=== PATIENT | male | born 1950 | race Caucasian/White ===

== ENCOUNTER 2018-02-07 21:57 | Observation (INO) ==
[2018-02-07] MEDS ORDERED: Aspirin 81 MG TAB.CHEW PO STA (22:31)
[2018-02-07] MEDS ORDERED: Nitroglycerin 0.4 MG TAB.SUBL SL PRN (22:31)
--- NOTE | 2018-02-07 22:34 | Emergency Department Note ---
Disposition Clinical Impression: Chest pain Qualifiers: Chest pain type: unspecified Qualified Code(s): R07.9 - Chest pain, unspecified Disposition: Admitted As Inpatient Condition: Good Chest Pain HPI - General Chief Complaint: ED Chest Pain Stated Complaint: CP Time Seen by Provider: 02/07/18 22:29 Source: patient Limitations: no limitations Vital Signs Reviewed: Yes Nursing Notes Reviewed: Yes - History of Present Illness HPI Narrative: Patient assessment chest pain since yesterday. Does not describe his symptoms very well. Seems to have had tightness constantly for about 24 hours with intermittent episodes of pain. The episodes he describes his pain include a burning sensation on the left side of his chest and a heavy sensation on the right side of his chest. No radiation. No associated nausea or diaphoresis. He does have associated shortness of breath. He says this does not feel like when he had his bypass surgery, but does feel similar ways had stents in the past. He had a negative recent stress test prior to a colonoscopy. He cannot identify any alleviating or exacerbating factors, specifically, no change with position, with exertion or with rest, or with deep breathing or coughing. He is not having fever or cough. No hemoptysis. No abdominal pain, vomiting or diarrhea. He currently has the tightness and just a little bit of a burning sensation on the left side of his chest. He has also had some associated dizziness without syncope or near-syncope, does not currently feel dizzy. Severity scale (1-10): 3 - Related Data Home Medications Medication Instructions Recorded Confirmed Albuterol Sulfate [Ventolin Hfa] 2 puff IH Q4H PRN 10/15/17 02/07/18 Aspirin [Lo-Dose Aspirin EC] 81 mg PO DAILY 10/15/17 02/07/18 Atorvastatin Calcium [Lipitor] 80 mg PO HS 10/15/17 02/07/18 BuPROPion SR (12 HR) [Wellbutrin 150 mg PO BID 10/15/17 02/07/18 SR] Carvedilol [Coreg] 25 mg PO BID 10/15/17 02/07/18 Clopidogrel [Plavix] 75 mg PO DAILY 10/15/17 02/07/18 Dofetilide [Tikosyn] 500 mcg PO BID 10/15/17 02/07/18 Evolocumab [Repatha Sureclick] 140 mg SQ Q2W 10/15/17 02/07/18 Furosemide [Lasix] 80 mg PO DAILY 10/15/17 02/07/18 Insulin Glargine,Hum.rec.anlog 30 unit SQ BID 10/15/17 02/07/18 [Lantus Solostar] Lisinopril [Zestril] 10 mg PO DAILY 10/15/17 02/07/18 [place]-3 Acid Ethyl Esters [Lovaza] 2 gm PO BID 10/15/17 02/07/18 Spironolactone [Aldactone] 25 mg PO DAILY 10/15/17 02/07/18 Glimepiride [Amaryl] 4 mg PO DAILY 10/30/17 02/07/18 Fluocinonide 1 appl TP DAILY PRN 02/07/18 02/07/18 Ipratropium/Albuterol Neb [Duoneb] 3 ml IH Q6HR 02/07/18 02/07/18 Ketoconazole Shampoo [Nizoral 1 appl TP 3XW 02/07/18 02/07/18 Shampoo] Minocycline [Minocin] 50 mg PO QAM 02/07/18 02/07/18 Multivitamin [One Daily 1 each PO DAILY 02/07/18 02/07/18 Multivitamin] Nicotine Patch [Nicoderm] 21 mg TD DAILY PRN 02/07/18 02/07/18 Tiotropium Br/Olodaterol HCl 2 puff IH DAILY 02/07/18 02/07/18 [Stiolto Respimat Inhal [place]] Varenicline Tartrate [Chantix] 1 mg PO BID 02/07/18 02/07/18 Acetaminophen [Tylenol] 1,000 mg PO Q6HR PRN 02/08/18 02/08/18 Allergies Allergy/AdvReac Type Severity Reaction Status Date / Time No Known Allergies Allergy Verified 11/26/17 03:09 All systems ED: reviewed and negative except as stated. 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 Gen.: Well-developed, well-nourished patient lying in bed who appears nontoxic. Head: Atraumatic, normocephalic. Eyes: Sclerae anicteric. ENT: Mucous membranes moist. Neck: No JVD. Heart: Regular rate and rhythm without appreciable murmur. Lungs: Normal respiratory pattern without respiratory distress, lungs clear to auscultation bilaterally. Abdomen: Soft, nontender, nondistended, no guarding or peritoneal signs. Skin: Warm and dry without rash. Neurologic: Awake, alert with normal speech and mental status. Cranial nerves grossly intact. No focal deficits or lateralizing signs. Psychiatric: Normal mood and affect. Musculoskeletal: Trace peripheral edema. No signs of trauma or DVT. - General Limitations: no limitations General appearance: alert, in no apparent distress Course Vital Signs Temperature 98.0 F 02/07/18 22:15 Pulse Rate 84 02/07/18 22:15 Respiratory Rate 18 02/07/18 22:15 Blood Pressure 132/73 02/07/18 22:15 O2 Sat by Pulse Oximetry 96 02/07/18 22:15 Temperature 98.3 F 02/11/18 11:22 Pulse Rate 68 02/11/18 11:22 Respiratory Rate 18 02/11/18 11:36 Blood Pressure 120/76 02/11/18 11:22 O2 Sat by Pulse Oximetry 94 02/11/18 11:36 Oxygen Delivery Oxygen Delivery Room Air Chest Pain - MDM Narrative Medical decision making narrative: Concerning presentation for possibility of ischemia. Last pt seen before shift change. Work up initiated, treatment ordered, pt checked out, will require admission once work up complete and pain is treated. - Lab Data Result diagrams: 02/10/18 07:57 02/10/18 07:57 Lab Results 02/07/18 02/07/18 Range/Units 23:08 23:08 Hgb 12.5 L (12.9-16.9) g/dL Sodium 137 (136-145) mEq/L Potassium 3.7 (3.5-5.1) mEq/L Chloride 104 (98-107) mEq/L Carbon Dioxide 25 (23-29) mEq/L BUN 16 (8-23) mg/dL Creatinine 0.84 (0.70-1.30) mg/dL Est GFR ( Amer) > 60 (> 60) Est GFR (Non-Af Amer) > 60 (> 60) BUN/Creatinine Ratio 19 (6-26) Glucose 173 H (70-105) mg/dL Calculated Osmolality 289 (280-300) Calcium 9.7 (8.6-10.3) mg/dL Troponin I < 0.03 (< 0.04) ng/mL - EKG Data EKG attestation: Yes I reviewed and interpreted this EKG. EKG shows normal: sinus rhythm (Rate 87, normal intervals and QRS duration. No STEMI is present. He has anterior Q waves that are old compared to prior EKG. He has nonspecific ST segment depression and T-wave inversion in leads 1 and aVL that are new compared to prior EKG.) Heart Score - Score History: Highly Suspicious EKG: Non Specific repolarisation Disturbance Age: Greater than 65 Risk Factors: Equal/Greater than 3 risk factor or history of atherosclerotic disease
[2018-02-07 23:44] LABS: BUN/Creatinine Ratio 19 (6-26); Blood Urea Nitrogen 16 mg/dL (8-23); Calcium 9.7 mg/dL (8.6-10.3); Carbon Dioxide 25 mEq/L (23-29); Chloride 104 mEq/L (98-107); Glucose 173 mg/dL (70-105); Osmolality,Calculated 289 (280-300); Potassium 3.7 mEq/L (3.5-5.1); Sodium 137 mEq/L (136-145); eGFR For African Americans > 60 (> 60); eGFR For Non-African Americans > 60 (> 60)
[2018-02-07 23:45] LABS: Troponin I < 0.03 ng/mL (< 0.04)
--- NOTE | 2018-02-08 00:51 | Emergency Department Note ---
Disposition Clinical Impression: Chest pain Qualifiers: Chest pain type: precordial pain Qualified Code(s): R07.2 - Precordial pain Disposition: Admitted As Inpatient Condition: Good Time of Disposition: 00:53 Chest Pain HPI - General Chief Complaint: ED Chest Pain Stated Complaint: CP Time Seen by Provider: 02/07/18 22:29 Source: patient Limitations: no limitations Vital Signs Reviewed: Yes Nursing Notes Reviewed: Yes - History of Present Illness Severity scale (1-10): 3 - Related Data Home Medications Medication Instructions Recorded Confirmed Albuterol Sulfate [Ventolin Hfa] 2 puff IH Q4H PRN 10/15/17 02/07/18 Aspirin [Lo-Dose Aspirin EC] 81 mg PO DAILY 10/15/17 02/07/18 Atorvastatin Calcium [Lipitor] 80 mg PO HS 10/15/17 02/07/18 BuPROPion SR (12 HR) [Wellbutrin 150 mg PO BID 10/15/17 02/07/18 SR] Carvedilol [Coreg] 25 mg PO BID 10/15/17 02/07/18 Clopidogrel [Plavix] 75 mg PO DAILY 10/15/17 02/07/18 Dofetilide [Tikosyn] 500 mcg PO BID 10/15/17 02/07/18 Evolocumab [Repatha Sureclick] 140 mg SQ Q2W 10/15/17 02/07/18 Furosemide [Lasix] 80 mg PO DAILY 10/15/17 02/07/18 Insulin Glargine,Hum.rec.anlog 30 unit SQ BID 10/15/17 02/07/18 [Lantus Solostar] Lisinopril [Zestril] 10 mg PO DAILY 10/15/17 02/07/18 [place]-3 Acid Ethyl Esters [Lovaza] 2 gm PO BID 10/15/17 02/07/18 Spironolactone [Aldactone] 25 mg PO DAILY 10/15/17 02/07/18 Glimepiride [Amaryl] 4 mg PO DAILY 10/30/17 02/07/18 Fluocinonide [Fluocinonide] 1 appl TP DAILY PRN 02/07/18 02/07/18 Ipratropium/Albuterol Neb [Duoneb] 3 ml IH Q6HR 02/07/18 02/07/18 Ketoconazole Shampoo [Nizoral 1 appl TP 3XW 02/07/18 02/07/18 Shampoo] Minocycline [Minocin] 50 mg PO QAM 02/07/18 02/07/18 Multivitamin [One Daily 1 each PO DAILY 02/07/18 02/07/18 Multivitamin] Nicotine Patch [Nicoderm] 21 mg TD DAILY PRN 02/07/18 02/07/18 Tiotropium Br/Olodaterol HCl 2 puff IH DAILY 02/07/18 02/07/18 [Stiolto Respimat Inhal [place]] Varenicline Tartrate [Chantix] 1 mg PO BID 02/07/18 02/07/18 Allergies Allergy/AdvReac Type Severity Reaction Status Date / Time No Known Allergies Allergy Verified 11/26/17 03:09 Chest Pain PMH - Past Medical History Medical history: Reports: atrial fibrillation, CVA, diabetes, hyperlipidemia, hypertension, myocardial infarction Surgical history: Reports: cancer surgery, coronary bypass (CABG), pacemaker/ AICD Psychiatric history: Reports: no psych history - Social History Smoking Status: Current every day smoker Alcohol use: Reports: occasionally Drug use: Reports: none Physical Exam - General Limitations: no limitations General appearance: alert, in no apparent distress Course - Reevaluation(s) Reevaluation #1: Due to shift change, care of this patient was transferred to dc from dayshift provider Dr. Marti. Please see his earlier documentation for details. Discussed with Dr. Terry. Pt is high risk with HEART score of 7, EKG changes. Nitro has been ordered for his pain. Labs pending. Will plan for admission. Time: 23:00 Reevaluation #2: Pt currently pain free after 2nitro. Troponin within limits. Hospitalists have been paged. vitals stable. Per patient installation specialist is Oly Ashley MD at [facility]. He presents with CP, he has significant risk facdtors and new EKG changes. Would benefit from admission. Pt discussed Dr. Montenegro who also had face time with patient and agreed with work up and admission. Time: 00:50 Vital Signs Temperature 98.0 F 02/07/18 22:15 Pulse Rate 84 02/07/18 22:15 Respiratory Rate 18 02/07/18 22:15 Blood Pressure 132/73 02/07/18 22:15 O2 Sat by Pulse Oximetry 96 02/07/18 22:15 Temperature 97.6 F 02/08/18 07:04 Pulse Rate 94 02/08/18 07:04 Respiratory Rate 18 02/08/18 07:04 Blood Pressure 115/66 02/08/18 07:04 O2 Sat by Pulse Oximetry 97 02/08/18 07:04 Oxygen Delivery Oxygen Delivery Room Air Chest Pain - MDM Narrative Medical decision making narrative: Chest X-Ray 02/07/18 22:30 IMPRESSION: 1. Mild cardiomegaly with mild vascular congestion and interstitial prominence. 2. Low lung volume study with streaky opacities at the bases that likely reflect atelectasis. D/ / Clemente Melgar MD / Clemente Melgar MD Interpreting Provider: Clemente Melgar MD Chest X-Ray 02/07/18 22:30 IMPRESSION: 1. Mild cardiomegaly with mild vascular congestion and interstitial prominence. 2. Low lung volume study with streaky opacities at the bases that likely reflect atelectasis. D/ / Clemente Melgar MD / Clemente Melgar MD Interpreting Provider: Clemente Melgar MD Laboratory Tests 02/07/18 02/07/18 23:08 23:08 Hgb 12.5 L Sodium 137 Potassium 3.7 Chloride 104 Carbon Dioxide 25 BUN 16 Creatinine 0.84 Est GFR ( Amer) > 60 Est GFR (Non-Af Amer) > 60 BUN/Creatinine Ratio 19 Glucose 173 H Calculated Osmolality 289 Calcium 9.7 Troponin I < 0.03 - Lab Data Lab results reviewed: Yes I reviewed the patient's lab results. Result diagrams: 02/08/18 04:33 02/08/18 04:33 Lab Results 02/07/18 02/07/18 Range/Units 23:08 23:08 Hgb 12.5 L (12.9-16.9) g/dL Sodium 137 (136-145) mEq/L Potassium 3.7 (3.5-5.1) mEq/L Chloride 104 (98-107) mEq/L Carbon Dioxide 25 (23-29) mEq/L BUN 16 (8-23) mg/dL Creatinine 0.84 (0.70-1.30) mg/dL Est GFR ( Amer) > 60 (> 60) Est GFR (Non-Af Amer) > 60 (> 60) BUN/Creatinine Ratio 19 (6-26) Glucose 173 H (70-105) mg/dL Calculated Osmolality 289 (280-300) Calcium 9.7 (8.6-10.3) mg/dL Troponin I < 0.03 (< 0.04) ng/mL - Radiology Data Radiology results reviewed: Yes I reviewed the patient's radiology results. - EKG Data EKG attestation: Yes I reviewed and interpreted this EKG.
[2018-02-08] MEDS ORDERED: Naloxone 0.4 MG/ML INJ IVP PRN (02:59)
[2018-02-08] MEDS ORDERED: Acetaminophen 325 MG TABLET PO PRN (02:59)
[2018-02-08] MEDS ORDERED: Nicotine 21 MG PATCH.TD24 TD PRN (03:02)
[2018-02-08] MEDS ORDERED: FluocinoNIDE 0.05% CRM 15 GM TUBE TP PRN (03:02)
[2018-02-08] MEDS ORDERED: Dextrose Gel 15 GM/37.5 ML TUBE PO PRN ×2 (03:11)
[2018-02-08] MEDS ORDERED: *HR* Dextrose 50 % in Water (Syg) 50 ML SYRINGE IVP PRN (03:11)
[2018-02-08] MEDS ORDERED: D5% in Water 1,000 ML IVC PRN (03:11)
--- NOTE | 2018-02-08 03:18 | Internal Med History&Physical ---
Date of Encounter: 02/08/18 Time of Encounter: 02:30 Assessment and Plan (1) CAD (coronary artery disease) Current visit: Yes Status: Acute S/P CABG and stenting. We will continue patient home medications with aspirin, Plavix, beta ajit, and statin. Qualifiers: Coronary Disease-Associated Artery/Lesion type: bypass graft [place] vs. transplanted heart: [place] heart Associated angina: with unstable angina Qualified Code(s): I25.700 - Atherosclerosis of coronary artery bypass graft(s) , unspecified, with unstable angina pectoris (2) CHF (congestive heart failure) Current visit: Yes Status: Acute Patient has PPM and defibrillator placed. Probably due to CHF. Patient has signs of fluid overload. No echocardiogram results available in chart. - Place patient on fluid restriction - Switch patient's by mouth Lasix to 40 mg IV twice a day - Strict I and O - Repeat echocardiogram in a.m. Qualifiers: Heart failure type: unspecified Heart failure chronicity: chronic Qualified Code(s): I50.9 - Heart failure, unspecified (3) COPD (chronic obstructive pulmonary disease) Current visit: Yes Status: Acute Continue home medication and DuoNeb as needed Qualifiers: COPD type: emphysema Emphysema type: unspecified Qualified Code(s): J43.9 - Emphysema, unspecified (4) Diabetes mellitus Current visit: Yes Status: Acute Continue basal and sliding scale insulin coverage Qualifiers: Diabetes mellitus type: type 2 Diabetes mellitus usp insulin use: with usp use Diabetes mellitus complication status: without complication Qualified Code(s): E11.9 - Type 2 diabetes mellitus without complications; 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 Chest pain with high risk of ACS. Chest pain responded to nitroglycerin. - Place patient on continuous cardiac monitoring - Track 3 sets of troponin - Echocardiogram - May consider stress test, per patient's symptoms changes and troponin and echo results Qualifiers: Chest pain type: precordial pain Qualified Code(s): R07.2 - Precordial pain Internal Medicine - H&P: HPI Chief complaint: chest pain Admitted From: Home Plans for Post Hospital Care: Home History of present illness: Mr. Glasgow is a 67 year old male with history of diabetes, hypertension, COPD, CAD S/P stent and CABG, melanoma S/P surgery, S/P PPM and defibrillator, presented to ER for chest pain. Patient said the pain started yesterday evening 9 PM when patient is sitting there, pressure-like, located on the mid chest, no radiation. Patient has shortness of breath. Patient denies nausea or diaphoresis. Patient was given nitroglycerin and it relieves the pain. Patient was admitted for further management. Past Med Surg Social Fam HX - Past Medical History Medical history: atrial fibrillation, CVA, diabetes, hyperlipidemia, hypertension, myocardial infarction Psychiatric history: no psych history - Past Surgical History Surgical History: cancer surgery, coronary bypass (CABG), pacemaker/AICD - Social History Smoking Status: Current every day smoker Smokeless Tobacco Status: No Alcohol use: occasionally Drug use: none - Family History Mother History Unknown: Yes Internal Medicine - H&P: Meds Albuterol Sulfate [Ventolin Hfa] 2 puff IH Q4H PRN 10/15/17 [History] Aspirin [Lo-Dose Aspirin EC] 81 mg PO DAILY 10/15/17 [History] Atorvastatin Calcium [Lipitor] 80 mg PO HS 10/15/17 [History] BuPROPion SR (12 HR) [Wellbutrin SR] 150 mg PO BID 10/15/17 [History] Carvedilol [Coreg] 25 mg PO BID 10/15/17 [History] Clopidogrel [Plavix] 75 mg PO DAILY 10/15/17 [History] Dofetilide [Tikosyn] 500 mcg PO BID 10/15/17 [History] Evolocumab [Repatha Sureclick] 140 mg SQ Q2W 10/15/17 [History] Furosemide [Lasix] 80 mg PO DAILY 10/15/17 [History] Insulin Glargine,Hum.rec.anlog [Lantus Solostar] 30 unit SQ BID 10/15/17 [ History] Lisinopril [Zestril] 10 mg PO DAILY 10/15/17 [History] [place]-3 Acid Ethyl Esters [Lovaza] 2 gm PO BID 10/15/17 [History] Spironolactone [Aldactone] 25 mg PO DAILY 10/15/17 [History] Glimepiride [Amaryl] 4 mg PO DAILY 10/30/17 [History] Fluocinonide [Fluocinonide] 1 appl TP DAILY PRN 02/07/18 [History] Ipratropium/Albuterol Neb [Duoneb] 3 ml IH Q6HR 02/07/18 [History] Ketoconazole Shampoo [Nizoral Shampoo] 1 appl TP 3XW 02/07/18 [History] Minocycline [Minocin] 50 mg PO QAM 02/07/18 [History] Multivitamin [One Daily Multivitamin] 1 each PO DAILY 02/07/18 [History] Nicotine Patch [Nicoderm] 21 mg TD DAILY PRN 02/07/18 [History] Tiotropium Br/Olodaterol HCl [Stiolto Respimat Inhal [place]] 2 puff IH DAILY [History] Varenicline Tartrate [Chantix] 1 mg PO BID 02/07/18 [History] 3 Allergy/AdvReac Type Severity Reaction Status Date / Time No Known Allergies Allergy Verified 11/26/17 03:09 All Systems PM: A 10-system review of systems was performed and is negative for pertinent findings except as documented above in the HPI. - Constitutional Vitals: Temp Pulse Resp BP Pulse Ox 98.0 F 76 14 127/80 95 02/07/18 22:15 02/08/18 02:41 02/08/18 02:41 02/08/18 02:41 02/08/18 02:41 General appearance: Present: mild distress, A&O X 3, answers questions appropriately - Head Head exam: Present: atraumatic, normocephalic - Eye Eye exam: Present: PERRL, conjuntiva pink, sclera anicteric Pupils: Present: PERRL - Neck Neck exam general surgery: Present: supple, trachea midline. Absent: lymphadenopathy - Respiratory Respiratory exam: Present: CTAB. Absent: accessory muscle use, rales, rhonchi, wheezes Additional comments: Coarse breath sounds bilaterally - Cardiovascular Cardiovascular exam: Present: RRR, +S1, +S2. Absent: diastolic murmur, gallop, rubs, systolic murmur - GI/Abdominal GI/Abdominal exam: Present: normal bowel sounds, soft, no peritoneal signs. Absent: distended, tenderness - Extremities Exam Extremities exam: Present: pedal edema (Mild pedal edema bilaterally), warm, radial pulses palpable and symmetrical. Absent: calf tenderness, cyanotic - Neurological Exam Neurological exam: Present: CN II-XII intact, oriented X3, no focal deficits. Absent: pronater drift, facial droop, speech deficit - Skin Skin exam: Present: dry, intact Internal Med - H&P Results - Labs CBC & Chem 7: 02/07/18 23:08 02/07/18 23:08 Labs: Short CBC 02/07/18 Range/Units 23:08 Hgb 12.5 L (12.9-16.9) g/dL BMP 02/07/18 23:08 Sodium 137 Potassium 3.7 Chloride 104 Carbon Dioxide 25 BUN 16 Creatinine 0.84 Glucose 173 H Calcium 9.7 Cardiac Enzymes 02/07/18 Range/Units 23:08 Troponin I < 0.03 (< 0.04) ng/mL - EKG Data -: EKG Interpreted by Myself EKG shows normal: sinus rhythm, ST-T waves (Nonspecific ST-T changes) Rate: normal - Impressions ITS Impressions Chest X-Ray 02/07/18 22:30 IMPRESSION: 1. Mild cardiomegaly with mild vascular congestion and interstitial prominence. 2. Low lung volume study with streaky opacities at the bases that likely reflect atelectasis. D/ / Clemente Melgar MD / Clemente Melgar MD Interpreting Provider: Clemente Melgar MD
[2018-02-08] MEDS: Ipratropium/Albuterol Neb 3 ML IH SCH ×4 (04:40→21:07)
[2018-02-08] MEDS: *HR* Heparin 5,000 UNIT/ML VIAL SQ SCH ×2 (04:42→17:18)
[2018-02-08 05:20] LABS: Basophils # 0.1 K/mcL (0.0-0.2); Basophils % 1.1 %; Eosinophils # 0.2 K/mcL (0.0-0.6); Eosinophils % 2.4 %; Hematocrit 41.3 % (37.5-50.1); Hemoglobin 13.6 g/dL (12.9-16.9); Immature Granulocytes % 0.7 % (0-4); Lymphocytes # 2.7 K/mcL (0.6-4.6); Lymphocytes % 32.7 %; Mean Corpuscular HGB Conc 32.9 g/dL (31.6-35.5); Mean Corpuscular Hemoglobin 29.7 pg (28.0-33.3); Mean Corpuscular Volume 90.2 fL (83.0-100.0); Mean Platelet Volume 10.8 fL (9.4-12.4); Monocytes # 0.7 K/mcL (0.0-1.3); Monocytes % 8.2 %; Neutrophils # 4.6 K/mcL (1.6-8.9); Platelet Count 188 K/mcL (140-400); Red Blood Count 4.58 M/mcL (4.19-5.50); Red Cell Distribution Width 13.2 % (11.5-14.5); Segmented Neutrophils % 54.9 %
[2018-02-08 05:29] LABS: BUN/Creatinine Ratio 20 (6-26); Blood Urea Nitrogen 16 mg/dL (8-23); Calcium 9.7 mg/dL (8.6-10.3); Carbon Dioxide 25 mEq/L (23-29); Chloride 105 mEq/L (98-107); Glucose 171 mg/dL (70-105); Osmolality,Calculated 291 (280-300); Sodium 138 mEq/L (136-145); eGFR For African Americans > 60 (> 60); eGFR For Non-African Americans > 60 (> 60)
[2018-02-08] MEDS: Spironolactone 25 MG TABLET PO SCH (07:52)
[2018-02-08] MEDS: Multivit/Ca/Min/Fe/FA 1 TAB TABLET PO SCH (07:52)
[2018-02-08] MEDS: Aspirin Enteric Coated 81 MG Tablet PO SCH (07:52)
[2018-02-08] MEDS: BuPROPion SR (12 HR) 150 MG TABLET PO SCH ×2 (07:52→22:10)
[2018-02-08] MEDS: Isosorbide MONOnitrate (24 HR) 30 MG TAB.ER.24H PO SCH (07:52)
[2018-02-08] MEDS: Insulin LISPRO 300 UNITS/3 ML VIAL SQ SCH ×4 (07:53→22:14)
[2018-02-08] MEDS: Furosemide 40 MG/4 ML VIAL IVP SCH ×2 (07:53→22:44)
[2018-02-08] MEDS ORDERED: NON-FORMULARY MEDICATION 1 EACH EACH (Furosemide [Lasix] 80 MG) PO SCH (09:00)
[2018-02-08] MEDS: (Omega-3 Acid Ethyl Esters [Lovaza] 2 GM) PO SCH (10:00)
[2018-02-08] MEDS: Insulin DETEMIR 100 UNIT/ML X5UNITS SQ SCH ×2 (10:04→22:26)
[2018-02-08] MEDS: Tiotropium 18 MCG inhalation IH SCH (11:20)
--- NOTE | 2018-02-08 16:35 | Event Note ---
Date of Encounter: 02/08/18 Time of Encounter: 11:00 Patient seen by nocturnalist was early this morning and also by myself 1. Chest pain -Cardiac biomarkers negative 3 -Nuclear medicine stress test scheduled for 02/09/18 to rule out ACS 2. CHF exacerbation -TTE pending -Continue IV Lasix
[2018-02-08] MEDS ORDERED: Perflutren Lipid Microsphere 1.3 ML in 0.9 % Sodium Chloride 8.7 ML IVP ONE (17:22)
[2018-02-09] MEDS: (Omega-3 Acid Ethyl Esters [Lovaza] 2 GM) PO SCH ×3 (02:24→20:45)
[2018-02-09] MEDS: Ipratropium/Albuterol Neb 3 ML IH SCH ×4 (03:29→22:10)
[2018-02-09] MEDS: *HR* Heparin 5,000 UNIT/ML VIAL SQ SCH ×2 (05:46→17:49)
[2018-02-09] MEDS ORDERED: Regadenoson 0.4 MG/5 ML SYRINGE IVP ONE (05:58)
[2018-02-09] MEDS: Insulin LISPRO 300 UNITS/3 ML VIAL SQ SCH ×4 (08:30→20:45)
[2018-02-09] MEDS: Isosorbide MONOnitrate (24 HR) 30 MG TAB.ER.24H PO SCH (08:33)
[2018-02-09] MEDS: Aspirin Enteric Coated 81 MG Tablet PO SCH (08:33)
[2018-02-09] MEDS: Spironolactone 25 MG TABLET PO SCH (08:33)
[2018-02-09] MEDS: Furosemide 40 MG/4 ML VIAL IVP SCH ×2 (08:34→20:45)
[2018-02-09] MEDS: BuPROPion SR (12 HR) 150 MG TABLET PO SCH ×2 (08:34→20:44)
[2018-02-09] MEDS: Insulin DETEMIR 100 UNIT/ML X5UNITS SQ SCH ×2 (08:34→21:26)
[2018-02-09] MEDS: Multivit/Ca/Min/Fe/FA 1 TAB TABLET PO SCH (08:34)
[2018-02-09] MEDS: Tiotropium 18 MCG inhalation IH SCH (09:32)
--- NOTE | 2018-02-09 18:44 | Internal Med Progress Note ---
Date of Encounter: 02/09/18 Time of Encounter: 11:00 - Assessment and plan (1) Chest pain Current Visit: Yes Status: Acute Assessment and plan: Patient is chest pain free but awaiting and part of nuclear medicine stress tests Qualifiers: Chest pain type: chest pain on breathing Qualified Code(s): R07.1 - Chest pain on breathing; R07.81 - Pleurodynia (2) CAD (coronary artery disease) Current Visit: Yes Status: Acute Assessment and plan: -Patient with history of CABG/stent; workup as above Qualifiers: Coronary Disease-Associated Artery/Lesion type: bypass graft [place] vs. transplanted heart: [place] heart Associated angina: with unstable angina Qualified Code(s): I25.700 - Atherosclerosis of coronary artery bypass graft(s) , unspecified, with unstable angina pectoris (3) CHF (congestive heart failure) Current Visit: Yes Status: Acute Assessment and plan: -Echocardiogram show LVEF of 40-50% with mild left ventricular diastolic dysfunction -We will continue IV diuresis Qualifiers: Heart failure type: unspecified Heart failure chronicity: chronic Qualified Code(s): I50.9 - Heart failure, unspecified (4) COPD (chronic obstructive pulmonary disease) Current Visit: Yes Status: Acute Assessment and plan: Continue home medications Qualifiers: COPD type: emphysema Emphysema type: unspecified Qualified Code(s): J43.9 - Emphysema, unspecified (5) DVT prophylaxis Current Visit: Yes Status: Acute Assessment and plan: Subcutaneous heparin (6) Diabetes mellitus Current Visit: Yes Status: Acute Assessment and plan: Continue basal insulin Qualifiers: Diabetes mellitus type: type 2 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 Diabetes mellitus complication status: without complication Qualified Code(s): E11.9 - Type 2 diabetes mellitus without complications; 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 Absent: accessory muscle use, rales, rhonchi, wheezes - Cardiovascular Cardiovascular exam: Present: RRR, +S1, +S2. Absent: diastolic murmur, gallop, rubs, systolic murmur Internal Medicine: Result - Labs CBC & Chem 7: 02/08/18 04:33 02/08/18 04:33 Consult Discharge Plan - Plan Referrals: Dawn Baron MD [Primary Care Provider] -
[2018-02-10] MEDS: Ipratropium/Albuterol Neb 3 ML IH SCH ×5 (04:08→21:28)
[2018-02-10] MEDS: *HR* Heparin 5,000 UNIT/ML VIAL SQ SCH ×2 (05:08→17:52)
[2018-02-10 08:17] LABS: Basophils % 0.6 %; Eosinophils # 0.2 K/mcL (0.0-0.6); Eosinophils % 2.4 %; Hemoglobin 12.7 g/dL (12.9-16.9); Immature Granulocytes % 0.5 % (0-4); Lymphocytes % 31.4 %; Mean Corpuscular HGB Conc 32.6 g/dL (31.6-35.5); Mean Corpuscular Hemoglobin 29.3 pg (28.0-33.3); Mean Corpuscular Volume 89.9 fL (83.0-100.0); Mean Platelet Volume 10.3 fL (9.4-12.4); Monocytes # 0.4 K/mcL (0.0-1.3); Neutrophils # 3.7 K/mcL (1.6-8.9); Platelet Count 189 K/mcL (140-400); Red Blood Count 4.34 M/mcL (4.19-5.50); Red Cell Distribution Width 13.1 % (11.5-14.5); Segmented Neutrophils % 58.1 %
[2018-02-10 08:26] LABS: BUN/Creatinine Ratio 23 (6-26); Blood Urea Nitrogen 18 mg/dL (8-23); Calcium 9.3 mg/dL (8.6-10.3); Carbon Dioxide 25 mEq/L (23-29); Chloride 106 mEq/L (98-107); Glucose 174 mg/dL (70-105); Osmolality,Calculated 290 (280-300); Sodium 137 mEq/L (136-145); eGFR For African Americans > 60 (> 60); eGFR For Non-African Americans > 60 (> 60)
[2018-02-10] MEDS: Furosemide 40 MG/4 ML VIAL IVP SCH ×2 (08:27→20:17)
[2018-02-10] MEDS: Insulin LISPRO 300 UNITS/3 ML VIAL SQ SCH ×4 (08:27→19:59)
[2018-02-10] MEDS: BuPROPion SR (12 HR) 150 MG TABLET PO SCH ×2 (08:39→20:16)
[2018-02-10] MEDS: Multivit/Ca/Min/Fe/FA 1 TAB TABLET PO SCH (08:39)
[2018-02-10] MEDS: Isosorbide MONOnitrate (24 HR) 30 MG TAB.ER.24H PO SCH (08:40)
[2018-02-10] MEDS: Spironolactone 25 MG TABLET PO SCH (08:40)
[2018-02-10] MEDS: (Omega-3 Acid Ethyl Esters [Lovaza] 2 GM) PO SCH ×2 (08:40→20:04)
[2018-02-10] MEDS: Insulin DETEMIR 100 UNIT/ML X5UNITS SQ SCH ×2 (08:40→20:32)
[2018-02-10] MEDS: Aspirin Enteric Coated 81 MG Tablet PO SCH (08:40)
[2018-02-10] MEDS: Tiotropium 18 MCG inhalation IH SCH (10:08)
--- NOTE | 2018-02-10 18:10 | Internal Med Progress Note ---
Date of Encounter: 02/10/18 Time of Encounter: 11:00 - Assessment and plan (1) Chest pain Current Visit: Yes Status: Acute Assessment and plan: Patient is chest pain free but awaiting and second part of two-part nuclear medicine stress tests Qualifiers: Chest pain type: chest pain on breathing Qualified Code(s): R07.1 - Chest pain on breathing; R07.81 - Pleurodynia (2) CAD (coronary artery disease) Current Visit: Yes Status: Acute Assessment and plan: -Patient with history of CABG/stent; workup as above Qualifiers: Coronary Disease-Associated Artery/Lesion type: bypass graft [place] vs. transplanted heart: [place] heart Associated angina: with unstable angina Qualified Code(s): I25.700 - Atherosclerosis of coronary artery bypass graft(s) , unspecified, with unstable angina pectoris (3) CHF (congestive heart failure) Current Visit: Yes Status: Acute Assessment and plan: -Echocardiogram show LVEF of 40-50% with mild left ventricular diastolic dysfunction -We will continue IV diuresis Qualifiers: Heart failure type: unspecified Heart failure chronicity: chronic Qualified Code(s): I50.9 - Heart failure, unspecified (4) COPD (chronic obstructive pulmonary disease) Current Visit: Yes Status: Acute Assessment and plan: Continue home medications Qualifiers: COPD type: emphysema Emphysema type: unspecified Qualified Code(s): J43.9 - Emphysema, unspecified (5) DVT prophylaxis Current Visit: Yes Status: Acute Assessment and plan: Subcutaneous heparin (6) Diabetes mellitus Current Visit: Yes Status: Acute Assessment and plan: Continue basal insulin Qualifiers: Diabetes mellitus type: type 2 Diabetes mellitus fpc insulin use: with fpc use Diabetes mellitus complication status: without complication Qualified Code(s): E11.9 - Type 2 diabetes mellitus without complications; Z79.4 - intermediate (current) use of insulin; 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 Absent: accessory muscle use, rales, rhonchi, wheezes - Cardiovascular Cardiovascular exam: Present: RRR, +S1, +S2. Absent: diastolic murmur, gallop, rubs, systolic murmur Internal Medicine: Result - Labs CBC & Chem 7: 02/10/18 07:57 02/10/18 07:57 Labs: Short CBC 02/10/18 Range/Units 07:57 WBC 6.3 (4.3-11.1) K/mcL Hgb 12.7 L (12.9-16.9) g/dL Hct 39.0 (37.5-50.1) % Plt Count 189 (140-400) K/mcL Neutrophils # 3.7 (1.6-8.9) K/mcL BMP 02/10/18 07:57 Sodium 137 Potassium 4.0 Chloride 106 Carbon Dioxide 25 BUN 18 Creatinine 0.77 Glucose 174 H Calcium 9.3 Consult Discharge Plan - Plan Referrals: Dawn Baron MD [Primary Care Provider] - (web request 02/10/2018)
[2018-02-11] MEDS: Ipratropium/Albuterol Neb 3 ML IH SCH ×2 (04:01→11:34)
[2018-02-11] MEDS: *HR* Heparin 5,000 UNIT/ML VIAL SQ SCH (05:49)
[2018-02-11] MEDS: Insulin LISPRO 300 UNITS/3 ML VIAL SQ SCH ×2 (08:28→11:48)
[2018-02-11] MEDS: Multivit/Ca/Min/Fe/FA 1 TAB TABLET PO SCH (08:29)
[2018-02-11] MEDS: Aspirin Enteric Coated 81 MG Tablet PO SCH (08:29)
[2018-02-11] MEDS: Insulin DETEMIR 100 UNIT/ML X5UNITS SQ SCH (08:29)
[2018-02-11] MEDS: BuPROPion SR (12 HR) 150 MG TABLET PO SCH (08:30)
[2018-02-11] MEDS: Spironolactone 25 MG TABLET PO SCH (08:30)
[2018-02-11] MEDS: Isosorbide MONOnitrate (24 HR) 30 MG TAB.ER.24H PO SCH (08:30)
[2018-02-11] MEDS: (Omega-3 Acid Ethyl Esters [Lovaza] 2 GM) PO SCH (08:31)
[2018-02-11] MEDS: Furosemide 40 MG/4 ML VIAL IVP SCH (08:31)
[2018-02-11 11:25] VITALS: BP 120/76
[2018-02-11] MEDS ORDERED: *HR* LORazepam 0.5 MG TABLET PO STA (13:18)
--- NOTE | 2018-02-11 13:29 | Discharge Summary ---
- NOTES TO OUTPATIENT PROVIDER Notes to Outpatient Provider: Follow-up with cardiology Orders not resulted at time of discharge: Pending orders 02/08/18 14:20 NM cecilia perf SPECT multi [NM] Routine Date of Encounter: 02/11/18 Time of Encounter: 13:00 - Discharge Diagnosis (1) Chest pain Priority: Primary Status: Acute Qualifiers: Chest pain type: unspecified Qualified Code(s): R07.9 - Chest pain, unspecified (2) CAD (coronary artery disease) Priority: Primary Status: Acute Qualifiers: Coronary Disease-Associated Artery/Lesion type: bypass graft [place] vs. transplanted heart: [place] heart Associated angina: with unstable angina Qualified Code(s): I25.700 - Atherosclerosis of coronary artery bypass graft(s) , unspecified, with unstable angina pectoris (3) CHF (congestive heart failure) Priority: Secondary Status: Acute Qualifiers: Heart failure type: unspecified Heart failure chronicity: chronic Qualified Code(s): I50.9 - Heart failure, unspecified (4) COPD (chronic obstructive pulmonary disease) Priority: Secondary Status: Acute Qualifiers: COPD type: emphysema Emphysema type: unspecified Qualified Code(s): J43.9 - Emphysema, unspecified (5) Diabetes mellitus Priority: Secondary Status: Acute Qualifiers: Diabetes mellitus type: type 2 Diabetes mellitus long term care social worker insulin use: with snf use Diabetes mellitus complication status: without complication Qualified Code(s): E11.9 - Type 2 diabetes mellitus without complications; Z79.4 - half-way (current) use of insulin; Z79.4 - half-way ( current) use of insulin; Z79.4 - long term care social worker (current) use of insulin; Z79.4 - long term care social worker (current) use of insulin Hospital course: Patient is a 67-year-old male with past medical history significant for diabetes , hypertension, COPD, CAD S/P stent and CABG, melanoma S/P surgery, S/P PPM and defibrillator, who presented to ER on 02/08/18 for chest pain. Patient stated that chest pain began the day prior to admission while sitting and describes pain as pressure which was located substernally without any radiation or associated symptoms. Patient was brought to the ER for further evaluation. During patients hospital stay his cardiac biomarkers were negative. Echocardiogram show LVEF of 40-50% with mild left ventricular diastolic dysfunction. Nuclear medicine stress test was ordered which was negative for ischemia but did show a large, fixed perfusion defect with abnormal wall motion. Patient remained asymptomatic without any chest pain during hospital stay. Discussed over the phone with cardiology with recommendations for patient to follow-up as an outpatient. - Time Spent with Patient Total time spent providing and/or coordinating discharge services: Less than 30 minutes - Discharge Medications Home Medications: Albuterol Sulfate [Ventolin Hfa] 2 puff IH Q4H PRN 10/15/17 [History] Aspirin [Lo-Dose Aspirin EC] 81 mg PO DAILY 10/15/17 [History] Atorvastatin Calcium [Lipitor] 80 mg PO HS 10/15/17 [History] BuPROPion SR (12 HR) [Wellbutrin SR] 150 mg PO BID 10/15/17 [History] Carvedilol [Coreg] 25 mg PO BID 10/15/17 [History] Clopidogrel [Plavix] 75 mg PO DAILY 10/15/17 [History] Dofetilide [Tikosyn] 500 mcg PO BID 10/15/17 [History] Evolocumab [Repatha Sureclick] 140 mg SQ Q2W 10/15/17 [History] Furosemide [Lasix] 80 mg PO DAILY 10/15/17 [History] Insulin Glargine,Hum.rec.anlog [Lantus Solostar] 30 unit SQ BID 10/15/17 [ History] Lisinopril [Zestril] 10 mg PO DAILY 10/15/17 [History] [place]-3 Acid Ethyl Esters [Lovaza] 2 gm PO BID 10/15/17 [History] Spironolactone [Aldactone] 25 mg PO DAILY 10/15/17 [History] Glimepiride [Amaryl] 4 mg PO DAILY 10/30/17 [History] Fluocinonide 1 appl TP DAILY PRN 02/07/18 [History] Ipratropium/Albuterol Neb [Duoneb] 3 ml IH Q6HR 02/07/18 [History] Ketoconazole Shampoo [Nizoral Shampoo] 1 appl TP 3XW 02/07/18 [History] Minocycline [Minocin] 50 mg PO QAM 02/07/18 [History] Multivitamin [One Daily Multivitamin] 1 each PO DAILY 02/07/18 [History] Nicotine Patch [Nicoderm] 21 mg TD DAILY PRN 02/07/18 [History] Tiotropium Br/Olodaterol HCl [Stiolto Respimat Inhal [place]] 2 puff IH DAILY [History] Varenicline Tartrate [Chantix] 1 mg PO BID 02/07/18 [History] Acetaminophen [Tylenol] 1,000 mg PO Q6HR PRN 02/08/18 [History] Allergies/Adverse Reactions: 3 Allergy/AdvReac Type Severity Reaction Status Date / Time No Known Allergies Allergy Verified 11/26/17 03:09 Date of admission: 02/08/18 03:15 Primary care physician: Dawn Baron, - Constitutional Vitals: Temp Pulse Resp BP Pulse Ox 98.3 F 68 18 120/76 94 02/11/18 11:22 02/11/18 11:22 02/11/18 11:36 02/11/18 11:22 02/11/18 11:36 General appearance: Present: mild distress, A&O X 3, no acute distress, answers questions appropriately - Patient Status Disposition: Home, Self-Care Condition: Good - Discharge Instructions Follow Up With: Dawn Baron MD [Primary Care Provider] - 02/15/18 3:00 pm (web request 02/10/2018) Bipin Cope DO [Partnered Physician] - Donna Devlin DO [Partnered Physician] -
[2018-02-11] MEDS ORDERED: Furosemide 40 MG/4 ML VIAL IVP SCH (17:00)
--- NOTE | 2018-02-12 21:55 | Electrocardiograph Report ---
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
== END 2018-02-11 14:28 | disposition home or self-care (01) ==
LOC: 3NENU 21:57 → EMEROO 21:57 → 3NENU 02-08 03:55 → 2ANU 02-08 13:11
PROVIDERS: ADMIT Hospitalist; ATTEND Hospitalist

== ENCOUNTER 2021-09-02 13:56 | Inpatient (IN) ==
[2021-09-02] MEDS ORDERED: 0.9 % Sodium Chloride 1,000 ML IVC ONE (14:22)
[2021-09-02 14:39] LABS: Basophils # 0.1 K/mcL (0.0-0.2); Basophils % 0.8 %; Eosinophils # 0.2 K/mcL (0.0-0.6); Eosinophils % 1.8 %; Hematocrit 40.9 % (37.5-50.1); Hemoglobin 13.4 g/dL (12.9-16.9); Immature Granulocytes % 0.2 % (0-4); Lymphocytes % 23.5 %; Mean Corpuscular HGB Conc 32.8 g/dL (31.6-35.5); Mean Corpuscular Volume 91.5 fL (83.0-100.0); Mean Platelet Volume 11.1 fL (9.4-12.4); Monocytes # 0.5 K/mcL (0.0-1.3); Monocytes % 5.9 %; Neutrophils # 5.6 K/mcL (1.6-8.9); Platelet Count 180 K/mcL (140-400); Red Blood Count 4.47 M/mcL (4.19-5.50); Red Cell Distribution Width 13.1 % (11.5-14.5); Segmented Neutrophils % 67.8 %; White Blood Count 8.3 K/mcL (4.3-11.1)
[2021-09-02 14:46] LABS: Prothrombin Time 11.1 Seconds (9.4-12.1)
[2021-09-02 14:49] LABS: Activated Partial Thrombo Time 34.2 Seconds (26.0-36.0)
[2021-09-02 15:05] LABS: Troponin I 0.11 ng/mL (< 0.04)
[2021-09-02 15:19] LABS: BUN/Creatinine Ratio 18 (6-26); Blood Urea Nitrogen 14 mg/dL (8-23); Calcium 9.4 mg/dL (8.6-10.3); Carbon Dioxide 25 mEq/L (23-29); Chloride 103 mEq/L (98-107); Glucose 187 mg/dL (70-105); Magnesium 1.9 mg/dL (1.6-2.6); Osmolality,Calculated 289 (280-300); Potassium 3.8 mEq/L (3.5-5.1); Sodium 137 mEq/L (136-145); Thyroid Stimulating Hormone 1.694 mcIU/mL (0.340-5.600); eGFR For African Americans > 60 (> 60); eGFR For Non-African Americans > 60 (> 60)
[2021-09-02] MEDS ORDERED: *HR* HYDROcodone/Acet 5/325 mg TABLET PO PRN (15:27)
[2021-09-02] MEDS ORDERED: Melatonin 3 MG TABLET PO PRN (15:27)
[2021-09-02] MEDS ORDERED: Acetaminophen 325 MG TABLET PO PRN (15:27)
[2021-09-02] MEDS ORDERED: Naloxone 0.4 MG/ML INJ IVP PRN (15:27)
[2021-09-02] MEDS ORDERED: *HR* Promethazine 25 MG/ML VIAL IM PRN (15:27)
[2021-09-02] MEDS ORDERED: Perflutren Lipid Microsphere 1.3 ML in 0.9 % Sodium Chloride 8.7 ML IVP PRN (15:59)
[2021-09-02] MEDS ORDERED: Amiodarone Premix 150 MG/100 ML BAG IVPB ONE (16:18)
[2021-09-02] MEDS ORDERED: Amiodarone Premix 360 MG/200 ML BAG IVC ONE (16:18)
[2021-09-02] MEDS ORDERED: Aspirin Enteric Coated 325 MG Tablet PO ONE (16:33)
[2021-09-02] MEDS ORDERED: carvediloL 6.25 MG TABLET PO SCH (17:00)
[2021-09-02] MEDS ORDERED: *HR* Heparin 5,000 UNIT/ML VIAL IVP ONE (17:53)
[2021-09-02] MEDS ORDERED: *HR* Heparin 5,000 UNIT/ML VIAL IVP PRN ×2 (17:53)
[2021-09-02] MEDS ORDERED: *HR* Dextrose 50 % in Water (Syg) 50 ML SYRINGE IVP PRN (18:05)
[2021-09-02] MEDS ORDERED: D5% in Water 1,000 ML IVC PRN (18:05)
[2021-09-02] MEDS ORDERED: Dextrose Gel 15 GM/37.5 ML TUBE PO PRN ×2 (18:05)
[2021-09-02 20:09] LABS: Adenovirus Not Detected (Not Detect); Bordetella Pertussis Not Detected (Not Detect); Chlamydophila pneumoniae Not Detected (Not Detect); Coronavirus 229E Not Detected (Not Detect); Coronavirus HKU1 Not Detected (Not Detect); Coronavirus NL63 Not Detected (Not Detect); Coronavirus OC43 Not Detected (Not Detect); Human Metapneumovirus Not Detected (Not Detect); Human Rhinovirus/Enterovirus Not Detected (Not Detect); Influenza A Subtype 2009 H1 Not Detected (Not Detect); Influenza B Not Detected (Not Detect); Mycoplasma pneumoniae Not Detected (Not Detect); Parainfluenza Virus 1 Not Detected (Not Detect); Parainfluenza Virus 2 Not Detected (Not Detect); Parainfluenza Virus 3 Not Detected (Not Detect); Parainfluenza Virus 4 Not Detected (Not Detect); Respiratory Syncytial Virus Not Detected (Not Detect); SARS-CoV-2 Not Detected (Not Detect)
[2021-09-02 21:44] LABS: Estimated Average Glucose 186 mg/dl; Hemoglobin A1C 8.1 %
[2021-09-02 21:57] LABS: Chol/HDL Ratio 3.4 (0-4.9)
[2021-09-02] MEDS: Ipratropium/Albuterol Neb 3 ML IH SCH (21:57)
[2021-09-02] MEDS: Budesonide/Formoterol 160/4.5 1 PUFF INH IH SCH (21:57)
[2021-09-02] MEDS: Heparin 25,000UNIT/250ML 1/2NS 25,000 UNIT/250 ML IV.SOLN IVC SCH (22:07)
[2021-09-02] MEDS: Amiodarone Premix 360 MG/200 ML BAG IVC SCH (23:12)
[2021-09-03] MEDS: Ipratropium/Albuterol Neb 3 ML IH SCH ×4 (03:57→21:05)
[2021-09-03 04:37] LABS: Basophils # 0.1 K/mcL (0.0-0.2); Basophils % 0.8 %; Eosinophils # 0.2 K/mcL (0.0-0.6); Eosinophils % 1.9 %; Hematocrit 38.6 % (37.5-50.1); Immature Granulocytes % 0.4 % (0-4); Lymphocytes % 23.4 %; Mean Corpuscular HGB Conc 33.7 g/dL (31.6-35.5); Mean Corpuscular Hemoglobin 31.1 pg (28.0-33.3); Mean Corpuscular Volume 92.3 fL (83.0-100.0); Mean Platelet Volume 11.1 fL (9.4-12.4); Monocytes # 0.4 K/mcL (0.0-1.3); Monocytes % 5.3 %; Neutrophils # 5.7 K/mcL (1.6-8.9); Platelet Count 156 K/mcL (140-400); Red Blood Count 4.18 M/mcL (4.19-5.50); Red Cell Distribution Width 13.3 % (11.5-14.5); Segmented Neutrophils % 68.2 %; White Blood Count 8.3 K/mcL (4.3-11.1)
[2021-09-03 04:48] LABS: Alanine Aminotransferase 13 Units/L (7-52); Albumin/Globulin Ratio 1.8 (1.1-2.2); Alkaline Phosphatase 68 Units/L (34-104); Aspartate Amino Transferase 12 Units/L (13-39); BUN/Creatinine Ratio 17 (6-26); Bilirubin,Total 0.5 mg/dL (0.3-1.0); Blood Urea Nitrogen 13 mg/dL (8-23); Calcium 8.7 mg/dL (8.6-10.3); Carbon Dioxide 27 mEq/L (23-29); Chloride 105 mEq/L (98-107); Globulin 2.2 g/dL (2.4-3.5); Glucose 203 mg/dL (70-105); Magnesium 2.2 mg/dL (1.6-2.6); Osmolality,Calculated 292 (280-300); Phosphorous 3.1 mg/dL (2.7-4.5); Sodium 138 mEq/L (136-145); Total Protein 6.2 g/dL (6.4-8.9); eGFR For African Americans > 60 (> 60); eGFR For Non-African Americans > 60 (> 60)
[2021-09-03 04:56] LABS: Heparin anti-factor XA UFH 0.54 IU/mL (0.30-0.70)
[2021-09-03 04:57] LABS: Prothrombin Time 10.7 Seconds (9.4-12.1)
[2021-09-03] MEDS: Budesonide/Formoterol 160/4.5 1 PUFF INH IH SCH ×2 (07:42→21:05)
[2021-09-03] MEDS: lisinopriL 10 MG TABLET PO SCH (08:20)
[2021-09-03] MEDS: carvediloL 25 MG TABLET PO SCH ×2 (08:21→21:19)
[2021-09-03] MEDS: Chlorhexidine Rinse 15 ML MOUTHWASH MM SCH ×2 (08:21→21:19)
[2021-09-03] MEDS: Insulin LISPRO 300 UNITS/3 ML VIAL SUBQ SCH ×3 (08:32→18:12)
[2021-09-03] MEDS ORDERED: lisinopriL 10 MG TABLET PO SCH (09:00)
[2021-09-03] MEDS ORDERED: Aspirin Enteric Coated 81 MG Tablet PO SCH (09:00)
[2021-09-03] MEDS: Fluticasone Propionate Nasal 50 MCG/SPRAY BOTTLE NS SCH (09:12)
[2021-09-03] MEDS: Spironolactone 25 MG TABLET PO SCH (09:15)
[2021-09-03] MEDS: Amiodarone Premix 360 MG/200 ML BAG IVC SCH ×2 (11:49→22:09)
[2021-09-03] MEDS: predniSONE 20 MG TABLET PO SCH (12:50)
[2021-09-03 13:38] LABS: VBG HCO3 28 mEq/L (21-27); VBG PCO2 46 mmHg (41-51); VBG PH 7.38 pH Units (7.32-7.42); VBG PO2 86 mmHg (25-50)
[2021-09-03] MEDS: Furosemide 20 MG/2 ML VIAL IVP SCH (15:05)
[2021-09-03] MEDS: Heparin 25,000UNIT/250ML 1/2NS 25,000 UNIT/250 ML IV.SOLN IVC SCH (18:17)
[2021-09-03] MEDS: Nicotine 21 MG PATCH.TD24 TD SCH (21:19)
[2021-09-04] MEDS: Ipratropium/Albuterol Neb 3 ML IH SCH ×4 (04:06→21:01)
[2021-09-04 04:48] LABS: BUN/Creatinine Ratio 17 (6-26); Blood Urea Nitrogen 14 mg/dL (8-23); Calcium 9.2 mg/dL (8.6-10.3); Carbon Dioxide 23 mEq/L (23-29); Chloride 102 mEq/L (98-107); Glucose 344 mg/dL (70-105); Magnesium 2.1 mg/dL (1.6-2.6); Osmolality,Calculated 290 (280-300); Phosphorous 2.8 mg/dL (2.7-4.5); Potassium 4.3 mEq/L (3.5-5.1); Sodium 133 mEq/L (136-145); eGFR For African Americans > 60 (> 60); eGFR For Non-African Americans > 60 (> 60)
[2021-09-04] MEDS: carvediloL 25 MG TABLET PO SCH ×2 (08:08→20:11)
[2021-09-04] MEDS: predniSONE 20 MG TABLET PO SCH (08:08)
[2021-09-04] MEDS: Furosemide 20 MG/2 ML VIAL IVP SCH (08:09)
[2021-09-04] MEDS: lisinopriL 10 MG TABLET PO SCH (08:09)
[2021-09-04] MEDS: Chlorhexidine Rinse 15 ML MOUTHWASH MM SCH ×2 (08:09→20:11)
[2021-09-04] MEDS: Spironolactone 25 MG TABLET PO SCH (08:09)
[2021-09-04] MEDS: Insulin LISPRO 300 UNITS/3 ML VIAL SUBQ SCH ×3 (08:09→16:21)
[2021-09-04] MEDS: Nicotine 21 MG PATCH.TD24 TD SCH (08:10)
[2021-09-04] MEDS: Heparin 25,000UNIT/250ML 1/2NS 25,000 UNIT/250 ML IV.SOLN IVC SCH ×2 (08:10→14:26)
[2021-09-04] MEDS: Amiodarone Premix 360 MG/200 ML BAG IVC SCH ×2 (08:19→20:20)
[2021-09-04] MEDS: Fluticasone Propionate Nasal 50 MCG/SPRAY BOTTLE NS SCH (08:27)
[2021-09-04] MEDS ORDERED: lisinopriL 10 MG TABLET PO ONE (10:20)
[2021-09-04] MEDS: Budesonide/Formoterol 160/4.5 1 PUFF INH IH SCH ×2 (10:42→21:03)
[2021-09-04] MEDS ORDERED: Furosemide 20 MG/2 ML VIAL IVP ONE (11:33)
[2021-09-04] MEDS: Insulin DETEMIR 100 UNIT/ML X5UNITS SUBQ SCH (20:11)
[2021-09-04] MEDS: *HR* Amiodarone 200 MG TABLET PO SCH (20:11)
[2021-09-05] MEDS: Ipratropium/Albuterol Neb 3 ML IH SCH ×4 (04:07→19:40)
[2021-09-05 07:03] LABS: BUN/Creatinine Ratio 21 (6-26); Blood Urea Nitrogen 19 mg/dL (8-23); Calcium 9.5 mg/dL (8.6-10.3); Carbon Dioxide 25 mEq/L (23-29); Chloride 102 mEq/L (98-107); Glucose 213 mg/dL (70-105); Osmolality,Calculated 287 (280-300); Potassium 3.9 mEq/L (3.5-5.1); Sodium 134 mEq/L (136-145); eGFR For African Americans > 60 (> 60); eGFR For Non-African Americans > 60 (> 60)
[2021-09-05] MEDS: Budesonide/Formoterol 160/4.5 1 PUFF INH IH SCH ×2 (07:31→19:40)
[2021-09-05] MEDS: Amiodarone Premix 360 MG/200 ML BAG IVC SCH (07:50)
[2021-09-05] MEDS: lisinopriL 10 MG TABLET PO SCH (07:51)
[2021-09-05] MEDS: predniSONE 20 MG TABLET PO SCH (07:52)
[2021-09-05] MEDS: carvediloL 25 MG TABLET PO SCH ×2 (07:52→20:06)
[2021-09-05] MEDS: *HR* Amiodarone 200 MG TABLET PO SCH ×2 (07:52→20:06)
[2021-09-05] MEDS: Spironolactone 25 MG TABLET PO SCH (07:52)
[2021-09-05] MEDS: Insulin LISPRO 300 UNITS/3 ML VIAL SUBQ SCH ×3 (07:53→17:17)
[2021-09-05] MEDS: Nicotine 21 MG PATCH.TD24 TD SCH (07:53)
[2021-09-05] MEDS: Chlorhexidine Rinse 15 ML MOUTHWASH MM SCH ×2 (07:53→20:06)
[2021-09-05] MEDS: Fluticasone Propionate Nasal 50 MCG/SPRAY BOTTLE NS SCH (07:58)
[2021-09-05 08:44] LABS: Magnesium 1.8 mg/dL (1.6-2.6)
[2021-09-05] MEDS ORDERED: *HR* Amiodarone 200 MG TABLET PO SCH (09:00)
[2021-09-05] MEDS ORDERED: Furosemide 20 MG/2 ML VIAL IVP SCH (09:00)
[2021-09-05] MEDS ORDERED: MOM Conc 10 ML UD.LIQ PO PRN (09:52)
[2021-09-05] MEDS ORDERED: Magnesium Oxide 400 MG TABLET PO ONE (13:20)
[2021-09-05] MEDS: Heparin 25,000UNIT/250ML 1/2NS 25,000 UNIT/250 ML IV.SOLN IVC SCH (13:42)
[2021-09-05] MEDS ORDERED: 0.9 % Sodium Chloride 2,000 ML ONE (15:26)
[2021-09-05] MEDS ORDERED: *HR* Midazolam HCl 2 MG/2 ML VIAL ONE (15:26)
[2021-09-05] MEDS ORDERED: *HR* FentaNYL (PF) 100 MCG/2 ML VIAL ONE (15:26)
[2021-09-05] MEDS ORDERED: Heparin 1,000 UNITS/500 mL 500 ML ONE (15:27)
[2021-09-05] MEDS ORDERED: ISOVUE-370 200 ML INFUS..BTL ONE (15:27)
[2021-09-05] MEDS ORDERED: *HR* Heparin 10,000 UNIT/10 ML VIAL ONE (15:27)
[2021-09-05] MEDS ORDERED: Nitroglycerin 1,000 MCG/5 ML VIAL IV ONE (15:27)
[2021-09-05] MEDS: Apixaban 5 MG TABLET PO SCH (20:06)
[2021-09-05] MEDS: Insulin DETEMIR 100 UNIT/ML X5UNITS SUBQ SCH (20:19)
[2021-09-05] MEDS ORDERED: Artificial Tears SOLN 15 ML BOTTLE BOTH EYES PRN (22:35)
[2021-09-06 03:26] LABS: BUN/Creatinine Ratio 23 (6-26); Blood Urea Nitrogen 23 mg/dL (8-23); Calcium 9.5 mg/dL (8.6-10.3); Carbon Dioxide 27 mEq/L (23-29); Chloride 99 mEq/L (98-107); Glucose 348 mg/dL (70-105); Magnesium 2.1 mg/dL (1.6-2.6); Osmolality,Calculated 294 (280-300); Phosphorous 3.4 mg/dL (2.7-4.5); Potassium 4.5 mEq/L (3.5-5.1); Sodium 133 mEq/L (136-145); eGFR For African Americans > 60 (> 60); eGFR For Non-African Americans > 60 (> 60)
[2021-09-06 03:36] VITALS: PULSE 63; O2SAT 97
[2021-09-06] MEDS: Ipratropium/Albuterol Neb 3 ML IH SCH (03:51)
[2021-09-06] MEDS: Spironolactone 25 MG TABLET PO SCH (07:26)
[2021-09-06 07:27] VITALS: BP 155/83; TEMP 98.2
[2021-09-06] MEDS: *HR* Amiodarone 200 MG TABLET PO SCH (07:27)
[2021-09-06] MEDS: predniSONE 20 MG TABLET PO SCH (07:28)
[2021-09-06] MEDS: Nicotine 21 MG PATCH.TD24 TD SCH (07:28)
[2021-09-06] MEDS: lisinopriL 10 MG TABLET PO SCH (07:29)
[2021-09-06] MEDS: Chlorhexidine Rinse 15 ML MOUTHWASH MM SCH (07:29)
[2021-09-06] MEDS: Apixaban 5 MG TABLET PO SCH (07:30)
[2021-09-06] MEDS: carvediloL 25 MG TABLET PO SCH (07:30)
[2021-09-06] MEDS: Fluticasone Propionate Nasal 50 MCG/SPRAY BOTTLE NS SCH (07:36)
[2021-09-06] MEDS: Insulin LISPRO 300 UNITS/3 ML VIAL SUBQ SCH (07:42)
[2021-09-06] MEDS ORDERED: Furosemide 40 MG TABLET PO SCH (09:00)
[2021-09-07] MEDS ORDERED: *HR* Amiodarone 200 MG TABLET PO SCH (09:00)
== END 2021-09-06 10:40 | disposition home or self-care (01) | DRG 281 ==
LOC: EMEROOARM 13:56 → 3BNU 13:56 → SUATTDRO 15:47 → 2NNU 16:34 → SUATTDRO 09-03 21:08
PROVIDERS: ADMIT Family Medicine; ATTEND Internal Medicine